=== PATIENT | female | born 1985 | race Two or more races ===

== ENCOUNTER 2017-10-28 22:22 | Emergency (ER) | payer SELFPAY ==
[~2017-10-28] VITALS: Ht 152.4 cm; Wt 69.4 kg
[2017-10-28 22:30] VITALS: BP 117/70
[2017-10-28] MEDS ORDERED: ACETAMINOPHEN ES 500 MG TABLET ONE (22:54)
[2017-10-28] MEDS ORDERED: ACETAMINOPHEN ES 500 MG TABLET PO ONE (23:00)
--- NOTE | 2017-10-29 00:31 | NUR ---
PT LEFT WITHOUT ACI.
== END 2017-10-29 00:33 | disposition home or self-care (01) ==
LOC: ER 22:25
DX: J02.0 Streptococcal pharyngitis (principal)
CPT/HCPCS: 87880; 99283; A4606; Z7610; 86403-TC

== ENCOUNTER 2017-12-24 02:02 | Emergency (ER) | payer MEDICAID ==
[~2017-12-24] VITALS: Ht 167.6 cm; Wt 77.1 kg
--- NOTE | 2017-12-24 02:05 | NUR ---
TO BED 2 BIB PARAMEDICS C/O ABDOMINAL PAIN, VAGINAL SPOTTING, PT 10 WKS . PT AAOX4 NO ACUTE DISRESS NOTED, RESP EVEN AND UNLABORED. PENDING ER MD KIDD.
--- NOTE | 2017-12-24 02:09 | NUR ---
ER MD AT BEDSIDE TO EVAL PT WITH ORDERS RECEIVED. WILL CARRY OUT ORDERS.
--- NOTE | 2017-12-24 02:32 | NUR ---
SUPERVISOR CALIBRATION AT BEDSIDE FOR BLOOD DRAW.
[2017-12-24 02:37] LABS: BASOPHILS # (AUTO) 0.1 /CMM (0.0-0.2); BASOPHILS % (AUTO) 0.6 % (0.0-2.0); EOSINOPHILS # (AUTO) 0.1 /CMM (0.0-0.7); HEMATOCRIT 33 % (33-45); HEMOGLOBIN 11.1 g/dL (11.5-14.8); LYMPHOCYTES # (AUTO) 3.1 /CMM (0.8-4.8); LYMPHOCYTES % (AUTO) 35.4 % (20.0-44.0); MEAN CORPUSCULAR HEMOGLOBIN 29 PG (26.0-33.0); MEAN CORPUSCULAR HGB CONC 34 g/dl (31.0-36.0); MEAN CORPUSCULAR VOLUME 84 fL (82-100); MONOCYTES # (AUTO) 0.5 /CMM (0.1-1.30); NEUTROPHILS # (AUTO) 5.1 /CMM (1.8-8.9); PLATELET COUNT (AUTO) 272 /CMM (150-450); RDW COEFFICIENT OF VARIATION 13.8 (11.5-15.0); RED BLOOD CELL COUNT(AUTO) 3.86 MIL/uL (4.0-5.2); WHITE BLOOD COUNT (AUTO) 8.9 K/uL (4.3-11.0)
[2017-12-24 02:39] LABS: APPEARANCE,URINE CLEAR (CLEAR); BILIRUBIN,URINE NEGATIVE (NEGATIVE); BLOOD, URINE 3+ Ery/uL (NEGATIVE); COLOR,URINE YELLOW (YELLOW); KETONES,URINE NEGATIVE (NEGATIVE); LEUKOCYTE ESTERASE ,URINE NEGATIVE (NEGATIVE); NITRITE, URINE NEGATIVE (NEGATIVE); PH,URINE 6.5 (5.0-8.0); PROTEIN,URINE NEGATIVE (NEGATIVE); UGLUCOSE NEGATIVE (NEGATIVE); UROBILINOGEN,URINE 0.2 EU/dL (0.2)
[2017-12-24 03:02] LABS: BACTERIA,URINE None seen /HPF (None Seen); SQUAMOUS EPITHELIAL CELL,UR Few /HPF (None Seen); WBC,URINE 0-2 /HPF (0-3)
[2017-12-24 04:31] VITALS: BP 121/69
--- NOTE | 2017-12-24 04:31 | NUR ---
Patient discharged to home in stable condition. Written and verbal after care instructions given. Patient verbalizes understanding of instruction. ambulatory with a steady gait
== END 2017-12-24 04:32 | disposition home or self-care (01) ==
LOC: ER 02:03
DX: O20.0 Threatened abortion (principal)
CPT/HCPCS: 36415; 76856-TC; 81000-TC; 84702-TC; 85025-TC; A4606; Z7610